=== PATIENT | male | born 1945 | race Caucasian/White ===

== ENCOUNTER 2021-02-24 06:42 | Inpatient (IN) ==
--- NOTE | 2021-01-26 09:50 | PAT Medication Instructions ---
Medication Instructions Date of Service January 26, 2021 Home Medications aspirin [Aspir-81] 81 mg PO HS atorvastatin 40 mg PO PM carvedilol 25 mg PO HS gabapentin 600 mg PO TID gemfibrozil 600 mg PO QPM ibuprofen [Advil] 200 - 400 mg PO Q6H PRN multivitamin 1 tab PO HS ramipril [Altace] 10 mg PO HS zolpidem 10 mg PO HS ASK your surgeon for instructions ibuprofen [Advil] 200 - 400 mg PO Q6H PRN ASK your prescriber and surgeon aspirin [Aspir-81] 81 mg PO HS STOP taking 48 hours before surgery gemfibrozil 600 mg PO QPM Take morning of surgery With a small sip of water, OTHERWISE NOTHING TO EAT OR DRINK AFTER MIDNIGHT: gabapentin 600 mg PO TID Take evening before surgery atorvastatin 40 mg PO PM carvedilol 25 mg PO HS gabapentin 600 mg PO TID ramipril [Altace] 10 mg PO HS zolpidem 10 mg PO HS Other Notes If you have any questions please call us at [phone] or [phone] or [phone] or [phone]
--- NOTE | 2021-01-29 10:51 | Anesthesiology Consultation ---
Date of Service January 29, 2021 Assessment & Plan (1) Encounter for pre-operative examination: - Awaiting most recent vascular office visit note. - Anemia: preop labs with hgb 11.6. No comparison labs available. Awaiting PCP response. - COVID screening: Per assessment on 01/29: Travel screen negative, no known COVID-19 positive contacts or current COVID-19 related symptoms. Patient vaccinated. Surgeon arranging preop COVID testing. Awaiting results. - Cardiology office visit (01/21/21): "An echocardiogram was ordered prior to this visit to reevaluate EF and wall motion.. Echocardiogram reviewed. This indicates normal left ventricular size and function with an ejection fraction of 55-60%. This is an improvement from his previous study done 11/16/2017 as ejection fraction was noted to be 40% with global hypokinesis. Significant valvular abnormalities are not present. Pulmonary hypertension is not present.. Patient denies complaints of angina. He has no evidence of volume overload or heart failure on exam. Blood pressure is controlled.. From a cardiology standpoint he is currently stable to proceed with planned surgery. Additional cardiac testing has [sic] not required prior to surgery. Recommend continued cardiac medications throughout the perioperative period especially beta-mary and statin. ASA should be d/c'd if known bleeding risks are similar or more severe than CV risk of ASA withdrawal. Therefore, whether or not to d/c ASA will be left to the surgeon's discretion.. Given the patient's clinical stability, I have not ordered new non-invasive test at this time." Chart Review Chart Review: Patient seen in Pre Admission Testing Teaching & Discussion Pre-Anesthesia Teaching/Discussion Notes: Instructed NPO after midnight before surgery,except medications with 15 cc of water. Medication instructions provided according to the PAT guidelines. History Surgery Operation Date: 02/24/21 07:15 Proposed Procedures p Left Shoulder Reverse Total Arthroplasty - Preston Cantor MD Height/Weight Height: 5 ft 11 in Weight: 76.8 kg Allergies Allergy/AdvReac Type Severity Reaction Status Date / Time No Known Allergies Allergy Verified 01/26/21 08:36 Medications Home Medications Medication Instructions Recorded Confirmed Last Taken aspirin 81 mg tablet,delayed 81 mg PO HS 01/26/21 01/26/21 Unknown release atorvastatin 40 mg tablet 40 mg PO PM 01/26/21 01/26/21 Unknown carvedilol 25 mg tablet 25 mg PO HS 01/26/21 01/26/21 Unknown gabapentin 300 mg capsule 600 mg PO TID 01/26/21 01/26/21 Unknown gemfibrozil 600 mg tablet 600 mg PO QPM 01/26/21 01/26/21 Unknown ibuprofen 200 mg tablet (Advil) 200 - 400 mg PO Q6H PRN 01/26/21 01/26/21 Unknown multivitamin 1 tab PO HS 01/26/21 01/26/21 Unknown ramipril 10 mg capsule (Altace) 10 mg PO HS 01/26/21 01/26/21 Unknown zolpidem 10 mg tablet 10 mg PO HS 01/26/21 01/26/21 Unknown Past Medical History Medical History AAA (abdominal aortic aneurysm) Infrarenal AAA, Follows with Dr. Mendez Arthritis CAD (coronary artery disease) CABG x4 (1998)- Follows with Dr. Leon/REBEKAH History of subdural hematoma 2011 Hyperlipidemia Hypertension Neuropathy B/L legs/feet PAD (peripheral artery disease) S/P femoropopliteal bypasses (patent) Renal artery stenosis Follows with Dr. Mendez Exercise / Class Metabolic Activity II 4-5 Yardwork/Stairs/Walk up hill (one FS (no CP, no SOB)) Past Family History Family History Other No known health problems Past Surgical History Surgical History History of colonoscopy History of coronary artery bypass graft CABG x4 (1998) History of hand surgery Right joint surgery History of tonsillectomy History of vascular surgery R/L legs- femoropopliteal bypasses (1998) Past Anesthesia History No Hx of Anesthesia Complications and No Family Hx of Anesthesia Complications History of PONV No Hx of PONV and No Hx of Motion Sickness Social History Smoking Status: Former smoker Do You Dip or Chew Tobacco: No Smoking End Date: Quit 14 years ago Hx Alcohol Use: Yes Alcohol type: beer alcohol intake frequency: a few times a week Hx Substance Use: No Review of Systems Patient denies chest pain, shortness of breath, dyspnea on exertion, fever, chills, cough, wheezing, palpitations. Physical Exam Vital Signs VITALS BP 126/66 P 79 TEMP 98.2 SP02 96%RA RESP 16 PHYSICAL Full cervical extension range of motion. Full TMJ range of motion. TMD 3 finger breaths Mallampati Score 1 Dentition: upper/lower full plates Lungs: clear throughout to auscultation Cardiac: regular rate and rhythm, no murmurs noted Spine: + scoliosis Carotid arteries: negative bruit Extremities: no edema Lab Results Anesthesia Preop Results Results Anesthesia Widget: WBC 5.15 K/uL (4.8-10.8) 01/29/21 Hgb 11.6 g/dL (14.0-18.0) L 01/29/21 Hct 35.3 % (42-52) L 01/29/21 Plt 185 K/uL (130-400) 01/29/21 Na 138 mmol/L (136-145) 01/29/21 K 4.4 mmol/L (3.5-5.1) 01/29/21 Cl 110 mmol/L (98-107) H 01/29/21 CO2 26 mmol/L (21-32) 01/29/21 BUN 16 mg/dl (7-18) 01/29/21 Creat 1.00 mg/dl (0.6-1.4) 01/29/21 Glucose Level 108 mg/dl (70-99) H 01/29/21 PT 11.2 Seconds (9.0-12.0) 01/29/21 PTT 24.8 Seconds (21.0-31.0) 01/29/21 INR 1.1 (0.9-1.1) 01/29/21 HA1c 5.5 % (4.5-5.6) 01/29/21 Urine Color Yellow 01/29/21 Urine Appearance Clear (Clear) 01/29/21 Urine pH 6.5 (4.5-7.5) 01/29/21 Urine Specific [place] 1.016 (1.000-1.030) 01/29/21 Urine Protein Negative (Negative) 01/29/21 Urine Glucose (UA) Negative (Negative) 01/29/21 Urine Ketones Negative (Negative) 01/29/21 Urine Blood Negative (Negative) 01/29/21 Urine Nitrite Negative (Negative) 01/29/21 Urine Bilirubin Negative (Negative) 01/29/21 Urine Urobilinogen Negative (Negative) 01/29/21 Urine Leukocyte Esterase Negative (Negative) 01/29/21 Blood Type O Positive 01/29/21 Antibody Screen NEGATIVE 01/29/21 Testing Electrocardiogram Date: 01/21/21 Sinus rhythm at 6 7 bpm. Low voltage. Nonspecific T wave changes. Chest X-Ray Date: 01/29/21 FINDINGS: There are postsurgical changes of a midline sternotomy. There is no failure. There is no focal pulmonary consolidation. There are no pleural effusions. There is a chronic midthoracic compression deformity. There is a thoracolumbar scoliosis.[ IMPRESSION: No active disease in the chest. Echocardiogram Date: 01/12/21 EF 55 to 60%. Although no diagnostic regional wall motion abnormalities identified, this possibility cannot be completely excluded on the basis of the study. RVSP 25 mmHg. Mild TR. AV sclerosis. LAD.
--- NOTE | 2021-02-23 13:56 | History & Physical Report ---
Date of Service February 23, 2021 Assessment & Plan (1) Rotator cuff arthropathy of left shoulder: Plan: Treatment options discussed with patient. He would like to proceed with surgical intervention. Risks, benefits and alternatives to surgery including but not limited to infection, DVT, pain, stiffness, need for revision surgery, damage to blood vessels, damage to nerves, PE, , were discussed with the patient and they wish to proceed. Plan on left reverse total shoulder arthroplasty. Surgery scheduled for 02/24/21 at [facility]. Will plan on discharge home post operatively. All questions answered. F/u post op. History of Present Illness Chief Complaint: Left shoulder pain Primary Care Provider: NO PCP 76 year old male with PMHx significant for AAA, CAD s/p CABG, HTN, high cholesterol, PAD who presents with ongoing left shoulder pain. He has pain interfering with daily activities. He has failed conservative measures. He would like to proceed with surgical intervention. Patient denies headaches, sweats, fevers, chills, double vision, blurred vision, cough, sore throat, dysphagia, chest pain, sob, wheezing, n/v/d/c, numbness, tingling, fatigue, urinary symptoms, mood disorders. ROS positive for left shoulder pain and stiffness. Allergies Allergy/AdvReac Type Severity Reaction Status Date / Time No Known Allergies Allergy Verified 01/26/21 08:36 Home Medications Medication Instructions Recorded Confirmed Type aspirin 81 mg tablet,delayed 81 mg PO HS 01/26/21 01/26/21 History release atorvastatin 40 mg tablet 40 mg PO PM 01/26/21 01/26/21 History carvedilol 25 mg tablet 25 mg PO HS 01/26/21 01/26/21 History gabapentin 300 mg capsule 600 mg PO TID 01/26/21 01/26/21 History gemfibrozil 600 mg tablet 600 mg PO QPM 01/26/21 01/26/21 History ibuprofen 200 mg tablet (Advil) 200 - 400 mg PO Q6H PRN 01/26/21 01/26/21 History multivitamin 1 tab PO HS 01/26/21 01/26/21 History ramipril 10 mg capsule (Altace) 10 mg PO HS 01/26/21 01/26/21 History zolpidem 10 mg tablet 10 mg PO HS 01/26/21 01/26/21 History Past Med/Surg History Medical History AAA (abdominal aortic aneurysm) Infrarenal AAA, Follows with Dr. Mendez Arthritis CAD (coronary artery disease) CABG x4 (1998)- Follows with Dr. Leon/REBEKAH History of subdural hematoma 2011 Hyperlipidemia Hypertension Neuropathy B/L legs/feet PAD (peripheral artery disease) S/P femoropopliteal bypasses (patent) Renal artery stenosis Follows with Dr. Mendez Surgical History History of colonoscopy History of coronary artery bypass graft CABG x4 (1998) History of hand surgery Right joint surgery History of tonsillectomy History of vascular surgery R/L legs- femoropopliteal bypasses (1998) Family History Other No known health problems Social History (Updated 01/26/21 @ 09:03 by Nelly Guidry RN) Smoking Status: Former smoker Second Hand Exposure: Yes (PARENTS SMOKED); Hx Alcohol Use: Yes Alcohol type: beer Hx Substance Use: No Preferred Language: Swiss Communication Ability: Effective Central Office Maintainer Required: No Beliefs That Will Affect Care: None Current Living Situation: Alone current occupational status: retired Feels Safe at Home: Yes Assistive Devices: Denture - Upper, Denture - Lower, Glasses and Hearing Aid - Bilateral Review of Systems All systems reviewed & are unremarkable except as noted in HPI & below Physical Exam Constitutional: well developed and well nourished; no acute distress Eyes: PERRL, conjunctivae normal, anicteric sclerae ENMT: external ear and nose normal, oropharynx normal Neck: trachea midline, no thyromegaly Respiratory: normal respiratory effort, lungs clear to auscultation Cardiovascular: RRR, no murmur, no edema Musculoskeletal: Shoulder Exam Inspection Right Left Atrophy *PRESENT Deformities Absent Absent Posture Symmetrical Symmetrical Rhythm Normal *ABNORMAL Skin/scars Normal Normal Palpation Right Left Crepitus Absent *PRESENT Tenderness Non-tender Diffuse, anterior - posterior joint line Stability/Laxity Right Left Anterior apprehension Negative Anterior translation *POSITIVE, To the rim (2) Posterior translation Negative Nunn's Negative *POSITIVE SLAP test Negative Speed's test Negative Yergason's Negative Belly press Negative *POSITIVE Mac Negative *POSITIVE Lift off test *POSITIVE Neer's Negative *POSITIVE Strength Tests Right Left External rotation Normal Normal Shoulder shrug Normal Normal Supraspinatus Normal Normal Comments: The patient has pain with resisted strength testing. Left shoulder anterior subluxation, cogwheel [id number] crepitation with resistance. Range of Motion Right Left Active factors Normal Active description Active pain free range of motion *ACTIVE PAINFUL RANGE OF MOTION Passive factors Normal Passive description Passive pain free range of motion *PASSIVE PAINFUL RNAGE OF MOTION Ext rot 90 abduction active 90 degrees 60 degrees Ext rot 90 abduction passive 90 degrees 90 degrees Int rot 90 abduction active 90 degrees 70 degrees Int rot 90 abduction passive 80 degrees 70 degrees Ext rot 90 flexion active 90 degrees 60 degrees Ext rot 90 flexion passive 90 degrees 60 degrees Internal rotation active T4 SI Internal rotation passive T4 L3 Flexion active 180 degrees 70 degrees Flexion passive 180 degrees 150 degrees Extension active 60 degrees 40 degrees Extension passive 60 degrees 40 degrees Abduction active 180 degrees 40 degrees Abduction passive 180 degrees 70 degrees Adduction active 50 degrees 40 degrees Adduction passive 50 degrees 40 degrees Upper Extremity Strength Region Right Left Shoulder Right shoulder strength is decreased Left shoulder strength is decreased Strength - Measurement Right Left Shoulder external rotation 4+/5 Shoulder internal rotation 2+/5 3-/5 Shoulder abduction 2+/5 3-/5 Shoulder flexion 2+/5 3-/5 Skin: no rashes, warm and dry Neurologic: patellar DTR's 2+ bilat, sensation intact Psychiatric: A+Ox3, euthymic affect Results & Data ([facility]) Diagnostic Findings X-rays left shoulder demonstrate that he has significant glenohumeral joint space narrowing with subchondral sclerosis and close to, if not being bone on bone in the glenohumeral joint radiographically. There is a type III acromion with inferior acromial spur, AC joint osteoarthritis with an inferior AC joint spur, and some anterior translation of the humerus on axillary view. There is also some proximal migration of the humerus. Four-view left shoulder. MRI demonstrates massive retracted tear of rotator cuff with fatty atrophy
[~2021-02-24 06:42] MED LIST: ACETAMINOPHEN 500 MG TAB PO SCH; BUPIVACAINE 0.5 % 5 MG/1 ML PF 10ML VIAL ONE; CeleBREX 200 MG CAP PO SCH; FAMOTIDINE 20 MG TAB PO SCH; GABAPENTIN 300 MG CAP PO SCH; LR 15ML/HR IV SCH; METOCLOPRAMIDE HCL 10 MG TABLET PO SCH; TRANEXAMIC ACID 1,000 MG **IV Intra-op IV SCH; TRANEXAMIC ACID 1,000 MG **IV Pre-op IV SCH; ceFAZolin 2000MG 2,000 MG/15 ML SYR IV SCH; dexAMETHasone 4 MG TAB PO SCH
[2021-02-24] MEDS ORDERED: PROPOFOL IV EMULSION 10 MG/ML 20 ML VIAL IV ONE (07:00)
[2021-02-24] MEDS ORDERED: ROCURONIUM BROMIDE 10 MG/ML 5 ML VIAL IV ONE (07:00)
[2021-02-24] MEDS ORDERED: LIDOCAINE 2% 2 ML VIAL/AMP(20MG/ML) INFIL ONE (07:00)
--- NOTE | 2021-02-24 07:24 | History & Physical Bridge Note ---
Date of Service February 24, 2021 History & Physical Bridge Note I have examined the patient, reviewed the History & Physical and in the interval since the performance of the History & Physical I have noted the following changes of clinical significance: no changes noted
[2021-02-24] MEDS ORDERED: fentaNYL citrate 100 MCG/2 ML VIAL IV PRN (07:57)
[2021-02-24] MEDS ORDERED: HYDROmorphone INJ 2 MG/ML SYR/VIAL IV PRN (07:57)
[2021-02-24] MEDS ORDERED: ONDANSETRON INJ 2 MG/ML 2 ML VIAL IV PRN ×2 (07:57→13:17)
[2021-02-24] MEDS ORDERED: ATROPINE SULFATE 0.1 MG/ML 10ML SYR IV PRN (07:57)
[2021-02-24] MEDS ORDERED: ePHEDrine sulfate 50 MG/ML AMP IV PRN (07:57)
[2021-02-24] MEDS ORDERED: fentaNYL citrate 100 MCG/2 ML VIAL ONE (08:15)
[2021-02-24] MEDS ORDERED: ONDANSETRON INJ 2 MG/ML 2 ML VIAL ONE (08:15)
[2021-02-24] MEDS ORDERED: MIDAZOLAM HCL 1 MG/ML 2ML VIAL ONE (08:15)
[2021-02-24] MEDS ORDERED: DEXAMETHASONE SOD INJ 4 MG/ML VIAL ONE (08:15)
[2021-02-24] MEDS ORDERED: ePHEDrine sulfate 50 MG/ML SYR ONE (09:55)
[2021-02-24] MEDS ORDERED: NEOSTIGMINE METHYLSULFATE 1 MG/ML 10ML VIAL ONE (11:32)
[2021-02-24] MEDS ORDERED: GLYCOPYRROLATE 0.2 MG/ML VIAL ONE (11:32)
--- NOTE | 2021-02-24 12:14 | Operative Report ---
Post Operative Report Pre & Post Diagnosis Operation Date: 02/24/21 09:05 Pre-Op Diagnosis: Left Shoulder Rotator Cuff Arthropathy, chronic rotator cuff tear, dislocated biceps tendon, history of Putti- Bryan procedure Post-Op Diagnosis: Left Shoulder Rotator Cuff Arthropathy, chronic rotator cuff tear, biceps tendinopathy, dislocated biceps tendon, history of Putti-Bryan procedure I identified the patient and participated in the time-out.: Yes Procedure Operation Date: 02/24/21 09:05 Actual Procedures p Left Reverse Total Shoulder Arthroplasty, Biceps Tenodesis(Left) - Preston Cantor MD Surgeon Preston Cantor MD Belt Dresser Ronny BRUCE Estimated Blood Loss 125 Findings Consistent with Post-Op Diagnosis Specimens Humeral head cut Drains 2 Hemovac Anesthesia Type General Regional Complications none Disposition Disposition: Recovery Room Indications 68-year-old male with chronic pain weakness left shoulder history of Putti- Bryan procedure many years ago. Radiographs demonstrate [id number] glenohumeral joint and he has a type III acromion. MRI demonstrates chronic retracted rotator cuff tear including subscapularis tendon and supraspinatus tendon with dislocated biceps tendon Description of Procedure The patient was taken to the operating room and anesthetized under regional block and general anesthetic. The patient was positioned on the operating table in a 30 beachchair position with a towel roll under the medial border of the left scapula. The arm was draped free to be able to manipulate the shoulder as needed. The left upper extremity was prepped and draped in usual sterile fashion. Exam demonstrated a long scar in the deltopectoral groove mid to lower aspect and superiorly extended up over the acromion process. No deltoid atrophy with good passive range of motion in external rotation to 80 degrees and forward flexion to 150 degrees but abduction was limited to about 60 degrees . An anterior deltopectoral approach was performed. A longitudinal incision was made in the deltopectoral interval using the lower part of the scar from the previous surgery and then continuing toward the coracoid process away from the old scar with a standard deltopectoral approach incision.. The skin was incised sharply. Subcutaneous flaps were elevated off the fascia. The cephalic vein was dissected out and retracted lateral with the deltoid. The clavipectoral fascia was markedly scarred from old surgical procedure and the scarred bursa tissue was freed up from the lateral margin of the conjoined tendon and dissected up to the CA ligament which was released. The thickened scarred bursal tissue was resected off of the subscapularis tendon tissue. There was some thin scarred tendon tissue proximally the biceps tendon was dislocated underneath this and it was thicker intact lower subscapularis tendon tissue. The supraspinatus tendon was torn and retracted the infraspinatus tendon was intact but had a delaminating tear of which some which could be repaired. The upper centimeter of the pectoralis was released for inferior exposure. the biceps tendon was tenodesed to the pectoralis tendon with #2 FiberWire. The proximal biceps was resected. The subscapularis tendon was taken down off the lesser tuberosity using a subperiosteal dissection. A #1 Vicryl traction suture was placed into the free end of the subscapularis tendon thin scarred tissue and edge of the capsule. The circumflex vessels were identified and tied off with silk ties and divided laterally. The subscapularis tendon was then taken down off of the lesser tuberosity subperiosteally and subperiosteal dissection was performed along the neck of the humerus as the arm is gradually externally rotated exposing the humeral head. The humeral head findings demonstrated some relatively small inferior osteophytes with complete eburnated bone on humeral head.. retractors were readjusted and the inferior osteophytes were all resected using a rongeur. A Lantigua elevator was used to assist in releasing the capsule of the neck of the humerus. A Fukuda retractor was placed into the joint retracting the humeral head posterior. Glenoid findings demonstrated upper 80% of the glenoid was complete eburnated bone with central wear with small amount of residual cartilage inferiorly. The labrum and biceps tendon was resected. an anterior-inferior and posterior inferior capsular release were performed with electrocautery and a Lantigua elevator on bone. Attention was then taken to the humeral preparation. The cutting guide was placed into the humeral head. It was positioned at 20 of retroversion. Oscillating saw was used to resect the humeral head giving the cut above the level of the posterior rotator cuff insertion site. The humerus was then prepared for the stem. I used the ascend flex stem from [facility]. The sizing broaches were used followed by trial broaches up to a size 5B long which had the appropriate fit and fill. The appropriate sized cut protector was placed. The humerus was then retracted posterior to the glenoid. The glenoid was sized for a 29 baseplate 42 glenoid sphere. The guide for the baseplate was positioned in a 10 inferior tilt and the central drill hole was made. The reamer for the 29 baseplate was used. The central drill was widened for the peg. The aequalis 29 hydroxyapatite-coated baseplate was impacted into position. The base plate was transfixed with superior and inferior locking screws and anterior and posterior compression screws with stable fixation. The fan reamer was used for the 42 millimeter glenoid sphere. After irrigation the 42 standard glenoid sphere was impacted onto the baseplate and the screw was tightened. Attention was taken back to the humerus. The cut protector was removed and the plus or high offset humeral tray trial was assembled to the trial stem rotated appropriately to get bony coverage and then screwed in position. A trial reduction was performed. A +6, 42 trial insert demonstrated good stability and no shuck. The trials were removed. 3 drill holes are made into the harder bone in the bicipital groove area and 3 #5 FiberWire sutures were placed transosseously. The canal was irrigated with pulse lavage saline solution. The final component was assembled. The final component was 5B long ascend flex PTC stem assembled to the plus or high offset tray with a +6, 42 polyethylene reversed insert. This was then impacted into the humerus with a tight press-fit. It was reduced to the glenoid sphere. Stability was verified. Subscapularis was repaired with the #5 FiberWire sutures using Pranav-Anselmo suture technique. Lateral row soft tissue repair was performed with #2 FiberWire [id number] sutures. The pectoralis was repaired with #2 FiberWire [id number] sutures reinforcing the biceps tendon tenodesis. The arm was taken through a range of motion which demonstrated 150 degrees of flexion 90 degrees abduction external rotation to 50 degrees without tension on repair. The implant was stable through the range of motion tested. The wound was copiously irrigated. 2 Hemovac drains were placed. The deltopectoral interval was closed with [id number] #1 Vicryl sutures. The subcutaneous tissues were closed with 2-0 Vicryl sutures. The skin was closed with ronald. Sterile dressings were applied and a shoulder immobilizer. Ronny BRUCE my physician facilities maintenance assistant assisted in the procedure to the entire procedure including patient positioning arm positioning prepping and draping soft tissue retraction instrument management suture management and performed the subcutaneous and skin closure and will participate in the postoperative care of the patient. I attest to the content of the Intraoperative Record and any orders documented therein. Any exceptions are noted below.
--- NOTE | 2021-02-24 12:43 | Anesthesiology Progress Note ---
Date of Service February 24, 2021 Anesthesia Post Procedure Vital Signs Vital Signs: Temp Pulse Pulse Resp BP Pulse Ox 02/24/21 12:40 51 L 16 140/70 98 02/24/21 12:30 50 L 12 138/70 100 02/24/21 12:20 54 L 14 144/67 H 98 02/24/21 12:12 36.0 C L 68 16 155/63 H 99 02/24/21 07:12 36.6 C 69 18 161/77 H 97 Transfer of Care Handoff Completed per policy Notes Mental Status: alert / awake / arousable and participated in evaluation Patient Amnestic to Procedure: Yes Nausea / Vomiting: adequately controlled Pain: adequately controlled Airway Patency, RR, SpO2: stable & adequate BP & HR: stable & adequate Hydration State: stable & adequate Anesthetic Complications: no major complications apparent
[2021-02-24] MEDS ORDERED: oxyCODONE HCL IR 5 MG TAB (IMMEDIATE RELEASE) PO PRN (13:17)
[2021-02-24] MEDS ORDERED: HYDROmorphone INJ 0.5 MG/0.5 ML SYR IV PRN (13:17)
[2021-02-24] MEDS ORDERED: MAGNESIUM HYDROXIDE SUSP 30 ML UDC PO PRN (13:17)
[2021-02-24] MEDS ORDERED: NALOXONE HCL 0.4 MG/1 ML VIAL/CARP IV PRN (13:17)
[2021-02-24] MEDS ORDERED: bisacodyL 10 MG SUPP PR PRN (13:17)
--- NOTE | 2021-02-24 13:21 | XRay Report ---
XR shoulder LT min 2V routine CLINICAL HISTORY: Post shoulder surgery COMPARISON STUDY: None. FINDINGS: 2 views of the left shoulder demonstrate a peripheral versus left total shoulder arthroplas ty. The hardware appears intact. Alignment is anatomic. No fracture or dislocation. Skin ronald and surgical drains are in place. IMPRESSION: Status post reverse left total shoulder arthroplasty. No evidence for hardware, location . ACT 112: Negative or not required by law. Electronically signed by: Dmitry Benjamin M.D. 02/24/2021 1:20 PM
[2021-02-24] MEDS: SODIUM CHLORIDE 0.9% 1000ML 1,000 ML IV SCH ×2 (15:49→22:23)
[2021-02-24] MEDS: ACETAMINOPHEN 500 MG TAB PO SCH ×2 (15:50→21:07)
[2021-02-24] MEDS: GABAPENTIN 300 MG CAP PO SCH ×2 (15:50→21:08)
[2021-02-24] MEDS: ceFAZolin 1000MG 1,000 MG/7.5 ML SYR IV SCH ×2 (17:27→23:37)
--- NOTE | 2021-02-24 19:52 | Hospitalist Consultation ---
Date of Consultation February 24, 2021 Assessment & Plan (1) Rotator cuff arthropathy of left shoulder: POD #0 - doing well up ambulating, using ICS, tolerating diet - Pain control reviewed- per primary team- rescue Narcan available - Drain per primary team - IVF- maintenance per primary team - ABX per primary team - PT/OT per primary team - DVT: SCD's on - chemoprophylaxis per primary team (2) Hypertension: Well controlled - Continue with Carvedilol 25 mg PO - SURYA inhibitor hold- follow renal indices in the morning- can likely restart if no concerns - Patient on Altace as outpatient- ordered LiveMinutestec for formulary equivalence dose verfied with medical clearance from 02/15/21- Altace 2.5 mg PO daily - Takes these at night, can give PRN dosing via IV or PO in morning if hypertensive, currently SBP 90-110 so should be ok to continue to hold. (3) Hyperlipidemia: Continue Atorvastatin 40mg and Lopid 600mg QPm (4) CAD (coronary artery disease): Continue Carvedilol, ASA as you have done already, and statin - Denies any chest pain or palpitations currently (5) PAD (peripheral artery disease): As above, continue asa (6) Renal artery stenosis: Follow BMP and blood pressures while in house (7) NICM (nonischemic cardiomyopathy): As above Supervising Physician Co-Signing Physician Notes Attending addendum: I have supervised the CASTRO's activities, and agree with the H&P unless as otherwise noted. Assessment and Plan: Left shoulder rotator cuff arthropathy, status post surgical repair- Antibiotics, IV fluids, PT/OT, drains, DVT prophylaxis per primary team Hypertension/CAD/PAD- Good control continue carvedilol with hold parameters Adjustment with SURYA inhibitor as noted Continue aspirin Hyperlipidemia- continue atorvastatin and Lopid Remaining orders and notations as noted History of Present Illness Reason for Consultation: Post operative medical management Requesting Physician: Dr. Cochran Attending Physician: Preston Cantor MD History of Present Illness 76 YOM with past medical history of: CAD, CABG 1993, HTN, HLD, PVD, ICM, former smoker, subdural hematoma (2011), AAA, Renal artery stenosis, Fem-pop and pop- tib bypass, Preoperative ECHO EF 55-60%. Patient is POD #0 from a left total shoulder arthroplasty. Patient received General Anesthesia. Patient EBL was 125 ml and has Hemovac drain in place. The patient was evaluated in his benitez room. The patient is briskly awake and is already up to and from the bathroom. He feels his pain is controlled as well as already tolerated a meal and fluids without nausea or vomiting, he is on room air. Medical clearance and Cardiology clearance notes reviewed. Operative reports reviewed. Additions: None- his Aspirin has been continued through the postoperative phase- Agree Held: Vasotec for morning of 12August- hold 24 can restart in morning if renal indices are appropriate- Medical clearance from PCP has dose listed at 2.5 mg Al tace- Equivalent would be 10 Enalapril dose adjusted and rescheduled. Allergies Allergy/AdvReac Type Severity Reaction Status Date / Time No Known Allergies Allergy Verified 02/24/21 07:07 Home Medications Medication Instructions Recorded Confirmed Type aspirin 81 mg tablet,delayed 81 mg PO HS 01/26/21 02/24/21 History release atorvastatin 40 mg tablet 40 mg PO PM 01/26/21 02/24/21 History gabapentin 300 mg capsule 600 mg PO TID 01/26/21 02/24/21 History gemfibrozil 600 mg tablet (Lopid) 600 mg PO QPM 01/26/21 02/24/21 History multivitamin 1 tab PO HS 01/26/21 02/24/21 History ramipril 10 mg capsule (Altace) 2.5 mg PO HS 01/26/21 02/24/21 History zolpidem 10 mg tablet 10 mg PO HS 01/26/21 02/24/21 History acetaminophen 500 mg tablet 1,000 mg PO Q8 14 Days #84 tab 02/25/21 Rx (Tylenol Extra Strength) carvedilol 25 mg tablet 25 mg PO BID #60 tab 02/25/21 Rx oxycodone 5 mg tablet 5 mg PO Q4H PRN #30 tab MDD 6 02/25/21 Rx polyethylene glycol 3350 17 gram 17 g PO DAILY PRN #5 ea 02/25/21 Rx oral powder packet (Miralax) Patient History Medical History (Updated 02/25/21 @ 12:30 by Rosario Kendrick MD) AAA (abdominal aortic aneurysm) Infrarenal AAA, Follows with Dr. Mendez Arthritis CAD (coronary artery disease) CABG x4 (1998)- Follows with Dr. Leon/REBEKAH History of subdural hematoma 2012 Hyperlipidemia Hypertension Neuropathy B/L legs/feet PAD (peripheral artery disease) S/P femoropopliteal bypasses (patent) Renal artery stenosis Follows with Dr. Mendez Surgical History History of colonoscopy History of coronary artery bypass graft CABG x4 (1998) History of hand surgery Right joint surgery History of tonsillectomy History of vascular surgery R/L legs- femoropopliteal bypasses (1998) Family History Other No known health problems Social History Smoking Status: Former smoker Second Hand Exposure: Yes (PARENTS SMOKED); Hx Alcohol Use: Yes Alcohol type: beer Hx Substance Use: No Preferred Language: Puerto Rican Communication Ability: Effective Mine Geologist Required: No Beliefs That Will Affect Care: None Current Living Situation: Alone current occupational status: retired Feels Safe at Home: Yes Assistive Devices: Glasses Review of Systems Review of Systems: REVIEW OF SYSTEMS: Constitutional: No fever, sweats or chills Eyes: No diplopia, no worsening or blurred vision ENT: normal hearing, no trouble swallowing Respiratory: No cough, sputum, dyspnea at rest or on exertion Cardiovascular: No chest pain, tightness or palpitations Abdomen: No pain, nausea, vomiting, diarrhea or constipation Musculoskeletal: No joint pain, calf pain, swelling Neurologic: No weakness, numbness/tingling, or balance problems Psychiatric: No anxiety or depression Skin: No rash or itch Physical Exam Physical Exam: PHYSICAL EXAM: General: briskly awake, alert, no apparent distress Head: Normocephalic, atraumatic ENT: PERRLA, EOMI, no pharyngeal exudate, mucous membranes moist Neuro: AAO x 3, speech clear and appropriate, strength intact bilaterally 5/5, sensation intact and equal all extremities and dermatomes Chest: equal rise and fall of the chest, no accessory muscle use, no heaves or thrills, Clear to auscultation, on room air, Cardiac: Regular rate and rhythm, telemetry reviewed, skin warm dry, cap refill <3 seconds, peripheral pulses +2 no JVD, no murmur, no edema GI: NABS x 4 quadrants, soft, nontender to palpation, no rebound, guarding or tenderness : Spontaneously voiding, no pain, no CVA tenderness, MSKL Normal inspection, no peripheral khushbu, left shoulder in sling with dressing intact. Hemovac drain ini place with minimal serosang drainage, sensation normal, good movement of fingers and pulses are 2+ and warm Psych: Normal mood and affect Skin: no rash or erythema Results & Data Results & Data ([facility]) Vital Signs (Past 12 Hours) Vital Signs Temp Pulse Pulse Resp BP Pulse Ox 02/24/21 17:51 36.5 C 81 15 91/58 L 95 02/24/21 16:54 36.4 C L 79 16 113/59 L 98 02/24/21 15:46 36.3 C L 78 16 124/69 98 02/24/21 15:16 36.3 C L 78 16 122/66 98 02/24/21 14:39 36.3 C L 81 18 134/67 98 02/24/21 14:05 36.6 C 64 14 165/82 H 95 02/24/21 13:50 67 24 131/92 98 02/24/21 13:35 88 19 148/75 H 97 02/24/21 13:20 49 L 13 142/76 H 100 02/24/21 13:05 50 L 13 130/70 100 02/24/21 12:50 36.0 C L 53 L 14 130/73 99 02/24/21 12:40 51 L 16 140/70 98 02/24/21 12:30 50 L 12 138/70 100 02/24/21 12:20 54 L 14 144/67 H 98 02/24/21 12:12 36.0 C L 68 16 155/63 H 99 Laboratory Results Reviewed from 01/29/21- BMP in the morning CBC reviewed 01/29/21- CBC in morning No coagulopathy noted from 01/29/21 Diagnostic Findings Shoulder X-Ray 02/24/21 12:17 XR shoulder LT min 2V routine CLINICAL HISTORY: Post shoulder surgery COMPARISON STUDY: None. FINDINGS: 2 views of the left shoulder demonstrate a peripheral versus left total shoulder arthroplasty. The hardware appears intact. Alignment is anatomic. No fracture or dislocation. Skin ronald and surgical drains are in place. IMPRESSION: Status post reverse left total shoulder arthroplasty. No evidence for hardware, location. ACT 112: Negative or not required by law. Electronically signed by: Dmitry Benjamin M.D. 02/24/2021 1:20 PM Medications Administered Home Medications aspirin 81 mg tablet,delayed release 81 mg PO HS 01/26/21 [History Confirmed 02/24/21] atorvastatin 40 mg tablet 40 mg PO PM 01/26/21 [History Confirmed 02/24/21] carvedilol 25 mg tablet 25 mg PO HS 01/26/21 [History Confirmed 02/24/21] gabapentin 300 mg capsule 600 mg PO TID 01/26/21 [History Confirmed 02/24/21] gemfibrozil 600 mg tablet (Lopid) 600 mg PO QPM 01/26/21 [History Confirmed 02/24/21] ibuprofen 200 mg tablet (Advil) 200 - 400 mg PO Q6H PRN 01/26/21 [History Confirmed 02/24/21] multivitamin 1 tab PO HS 01/26/21 [History Confirmed 02/24/21] ramipril 10 mg capsule (Altace) 10 mg PO HS 01/26/21 [History Confirmed 02/24/21] zolpidem 10 mg tablet 10 mg PO HS 01/26/21 [History Confirmed 02/24/21] Active Medications Acetaminophen (Acetaminophen 500 Mg Tab) 1,000 mg PO Q8 MELISSA Stop: 03/26/21 14:44 Last Admin: 02/24/21 15:50 Dose: 1,000 mg Documented by: Aspirin (Aspirin 81 Mg Ectab) 81 mg PO HS MELISSA Stop: 03/26/21 20:59 Atorvastatin Calcium (Atorvastatin 40 Mg Tab) 40 mg PO PM MELISSA Stop: 03/26/21 20:59 Bisacodyl (Bisacodyl 10 Mg Supp) 10 mg MO DAILY PRN PRN Reason: Constipation Stop: 03/26/21 13:16 Carvedilol (Carvedilol 25 Mg Tab) 25 mg PO HS MELISSA Stop: 03/26/21 20:59 Docusate Sodium (Docusate Sodium 100 Mg Cap) 100 mg PO BID MELISSA Stop: 03/26/21 20:59 Enalapril Maleate (Enalapril Maleate 10 Mg Tab) 40 mg PO HS [facility] Stop: 03/26/21 20:59 Gabapentin (Gabapentin 300 Mg Cap) 600 mg PO TID [facility] Stop: 03/26/21 14:59 Last Admin: 02/24/21 15:50 Dose: 600 mg Documented by: Gemfibrozil (Gemfibrozil 600 Mg Tab) 600 mg PO QPM [facility] Stop: 03/26/21 20:59 Hydromorphone HCl (Hydromorphone Inj 0.5 Mg/0.5 Ml Syr) 0.25 mg IV Q4H PRN PRN Reason: Pain or Pre PT Stop: 03/10/21 13:16 Sodium Chloride (Nss 1000ml) 1,000 mls @ 100 mls/hr IV .Q10H [facility] Stop: 02/25/21 14:44 Last Admin: 02/24/21 15:49 Dose: 100 mls/hr Documented by: Cefazolin Sodium (Ancef 1000mg) 1,000 mg in 7.5 mls @ 2.5 mls/min IV Q8H [facility]; Protocol Stop: 02/25/21 00:02 Last Admin: 02/24/21 17:27 Dose: 2.5 mls/min Documented by: Magnesium Hydroxide (Magnesium Hydroxide Susp 30 Ml Udc) 30 ml PO Q6H PRN PRN Reason: Constipation Stop: 03/26/21 13:16 Multivitamins (Multivitamin Tab) 1 tab PO [facility] Stop: 03/26/21 20:59 Naloxone HCl (Naloxone Hcl 0.4 Mg/1 Ml Vial/Carp) 0.1 mg IV Q5M PRN PRN Reason: Oversedation/Resp Depression Stop: 03/26/21 13:16 Ondansetron HCl (Ondansetron Inj 2 Mg/Ml 2 Ml Vial) 4 mg IV Q6H PRN PRN Reason: Nausea And Vomiting Stop: 03/26/21 13:16 Oxycodone HCl (Oxycodone Hcl Ir 5 Mg Tab (Immediate Release)) 5 - 10 mg PO Q4H PRN PRN Reason: Pain or Pre PT Stop: 03/10/21 13:16 Sennosides (Senna 8.6 Mg Tab) 17.2 mg PO [facility] Stop: 03/26/21 20:59 Zolpidem Tartrate (Zolpidem Tartrate 10 Mg Tab) 10 mg PO HS MELISSA Stop: 03/26/21 20:59 ECG Additional Comments: Reviewed pre-operative PG Care Time/CCT Total # of Minutes Spent Total Time Spent with Patient: Total time spent is greater than 50% in coordination of care (as documented) at patient's floor/unit and/or counseling patient: Coding Level of Care Code 32326 Inpt Consult Level 4 Diagnoses Rotator cuff arthropathy of left shoulder M12.812 Hypertension I10 Hyperlipidemia E78.5 CAD (coronary artery disease) I25.10 PAD (peripheral artery disease) I73.9 Renal artery stenosis I70.1 NICM (nonischemic cardiomyopathy) I42.8
[2021-02-24] MEDS ORDERED: ENALAPRIL MALEATE 10 MG TAB PO SCH (21:00)
[2021-02-24] MEDS ORDERED: SENNA 8.6 MG TAB PO SCH (21:00)
[2021-02-24] MEDS ORDERED: carvediloL 25 MG TAB PO SCH (21:00)
[2021-02-24] MEDS ORDERED: MULTIVITAMIN TAB PO SCH (21:00)
[2021-02-24] MEDS ORDERED: ZOLPIDEM TARTRATE 10 MG TAB PO SCH (21:00)
[2021-02-24] MEDS ORDERED: ATORVASTATIN 40 MG TAB PO SCH (21:00)
[2021-02-24] MEDS ORDERED: ASPIRIN 81 MG ECTAB PO SCH (21:00)
[2021-02-24] MEDS ORDERED: gemfibroziL 600 MG TAB PO SCH (21:00)
[2021-02-24] MEDS: DOCUSATE SODIUM 100 MG CAP PO SCH (21:07)
[2021-02-24] MEDS ORDERED: SODIUM CHLORIDE 0.9% 1000ML 500 ML IV ONE ×2 (21:30→22:27)
[2021-02-24 22:02] LABS: Basophils # (auto) 0.01 K/uL (0-0.2); Basophils % (auto) 0.1 %; Hematocrit (blood only) 31.7 % (42-52); Hemoglobin 10.6 g/dL (14.0-18.0); Lymphocytes # (auto) 0.54 K/uL (1.2-3.4); Lymphocytes % (auto) 6.3 %; Mean Corpuscular Hemoglobin 31.9 pg (25-34); Mean Corpuscular Hgb Conc 33.4 g/dL (32-36); Mean Corpuscular Volume 95.5 fL (80-100); Mean Platelet Volume 10.7 fL (7.4-10.4); Monocytes % (auto) 9.4 %; Neutrophils # (auto) 7.16 K/uL (1.4-6.5); Neutrophils % (auto) 84.2 %; Platelet Count 153 K/uL (130-400); RDW Coefficient of Variation 12.7 % (11.5-14.5); RDW Standard Deviation 44.4 fL (36.4-46.3); Red Blood Count 3.32 M/uL (4.7-6.1); White Blood Count 8.51 K/uL (4.8-10.8)
[2021-02-24 22:18] LABS: Calcium 8.4 mg/dl (8.5-10.1); Creatinine Clr Calc Pharmacy 49.2 ml/min; Est GFR (Non-African American) 51.8 ml/min; Magnesium 1.6 mg/dl (1.8-2.4); Potassium 4.1 mmol/L (3.5-5.1)
[2021-02-24] MEDS ORDERED: MAGNESIUM SULFATE / D5W 1 GM/100 ML BAG IV ONE (22:26)
[2021-02-25] MEDS ORDERED: SODIUM CHLORIDE 0.9% 1000ML 500 ML IV ONE (00:04)
[2021-02-25] MEDS: SODIUM CHLORIDE 0.9% 1000ML 1,000 ML IV SCH (03:26)
[2021-02-25] MEDS: ACETAMINOPHEN 500 MG TAB PO SCH ×3 (06:12→17:57)
[2021-02-25] MEDS: DOCUSATE SODIUM 100 MG CAP PO SCH (08:05)
[2021-02-25] MEDS: GABAPENTIN 300 MG CAP PO SCH ×2 (08:05→14:18)
--- NOTE | 2021-02-25 08:31 | Electrocardiogram Report ---
Test Reason : Blood Pressure : / mmHG Vent. Rate : 124 BPM Atrial Rate : 115 BPM P-R Int : 000 ms QRS Dur : 096 ms QT Int : 324 ms P-R-T Axes : 000 -38 -48 degrees QTc Int : 465 ms Supraventricular tachycardia Left axis deviation Incomplete right bundle branch block possible Inferior infarct , age undetermined Abnormal ECG No previous ECGs available Confirmed by Carlitos Alcantara ([id number]) on 02/25/2021 8:30:59 AM Referred By: Preston Cantor Confirmed By:Genaro Alcantara
[2021-02-25] MEDS ORDERED: carvediloL 25 MG TAB PO SCH (09:00)
[2021-02-25] MEDS ORDERED: ENALAPRIL MALEATE 10 MG TAB PO SCH ×2 (09:00→21:00)
[2021-02-25 09:04] LABS: Basophils # (auto) 0.01 K/uL (0-0.2); Basophils % (auto) 0.2 %; Eosinophils # (auto) 0.01 K/uL (0-0.5); Eosinophils % (auto) 0.2 %; Hematocrit (blood only) 29.1 % (42-52); Hemoglobin 9.7 g/dL (14.0-18.0); Immature Granulocytes # (auto) 0.01 K/uL (0.00-0.02); Immature Granulocytes % (auto) 0.2 %; Lymphocytes # (auto) 0.86 K/uL (1.2-3.4); Lymphocytes % (auto) 13.3 %; Mean Corpuscular Hemoglobin 31.9 pg (25-34); Mean Corpuscular Hgb Conc 33.3 g/dL (32-36); Mean Corpuscular Volume 95.7 fL (80-100); Monocytes # (auto) 0.68 K/uL (0.11-0.59); Monocytes % (auto) 10.5 %; Neutrophils # (auto) 4.88 K/uL (1.4-6.5); Neutrophils % (auto) 75.6 %; Platelet Count 154 K/uL (130-400); RDW Coefficient of Variation 12.8 % (11.5-14.5); RDW Standard Deviation 44.7 fL (36.4-46.3); Red Blood Count 3.04 M/uL (4.7-6.1); White Blood Count 6.45 K/uL (4.8-10.8)
--- NOTE | 2021-02-25 09:27 | Orthopedic Progress Note ---
Date of Service February 25, 2021 Assessment & Plan (1) Rotator cuff arthropathy of left shoulder: Plan: Postop day 1 status post left reverse total shoulder arthroplasty. PT/OT protocols. Nonweightbearing left upper extremity. DVT prophylaxis-aspirin p.o. daily, SCDs while in the hospital. Pain management as written Medical management as per [facility] service. DC planning-plan for discharge to home when medically stable. Admission and Anticipated Discharge Date Admission Date: February 24, 2021 Subjective Postop day 1 Patient sitting up in bed awake and alert. Eating his breakfast. No complaints this morning. Pain is controlled. Denies shortness of breath, chest pain, lightheadedness. States he has a little bit of residual numbness in his left thumb. Physical Exam Physical Exam: Dressings are clean, dry, and intact. Sling is in place. He has good range of motion of his fingers and wrist. Slight decreased sensation in the left thumb. He had 100 mL of drainage from his Hemovac from the previous shift. Results & Data ([facility]) Vital Signs (Past 12 Hours) Vital Signs Temp Pulse Pulse Pulse Resp BP Pulse Ox 02/25/21 07:43 36.6 C 108 H 16 124/67 92 02/25/21 04:00 36.7 C 128 H 18 128/79 93 02/25/21 01:33 84 02/25/21 01:28 72 02/25/21 00:50 36.7 C 120 H 122 H 22 106/67 94 02/24/21 23:36 121 H 104/68 02/24/21 22:45 36.4 C L 121 H 18 102/63 94 02/24/21 22:23 121 H 97/61 L Laboratory Results Laboratory Results WBC 6.45 K/uL (4.8-10.8) 02/25/21 07:59 RBC 3.04 M/uL (4.7-6.1) L 02/25/21 07:59 Hgb 9.7 g/dL (14.0-18.0) L 02/25/21 07:59 Hct 29.1 % (42-52) L 02/25/21 07:59 MCV 95.7 fL (80-100) 02/25/21 07:59 MCH 31.9 pg (25-34) 02/25/21 07:59 MCHC 33.3 g/dL (32-36) 02/25/21 07:59 RDW Std Deviation 44.7 fL (36.4-46.3) 02/25/21 07:59 RDW Coeff of Simon 12.8 % (11.5-14.5) 02/25/21 07:59 Plt Count 154 K/uL (130-400) 02/25/21 07:59 MPV 11.0 fL (7.4-10.4) H 02/25/21 07:59 Immature Gran % (Auto) 0.2 % 02/25/21 07:59 Neut % (Auto) 75.6 % 02/25/21 07:59 Lymph % (Auto) 13.3 % 02/25/21 07:59 [place] % (Auto) 10.5 % 02/25/21 07:59 Eos % (Auto) 0.2 % 02/25/21 07:59 Baso % (Auto) 0.2 % 02/25/21 07:59 Neut # (Auto) 4.88 K/uL (1.4-6.5) 02/25/21 07:59 Lymph # (Auto) 0.86 K/uL (1.2-3.4) L 02/25/21 07:59 [place] # (Auto) 0.68 K/uL (0.11-0.59) H 02/25/21 07:59 Eos # (Auto) 0.01 K/uL (0-0.5) 02/25/21 07:59 Baso # (Auto) 0.01 K/uL (0-0.2) 02/25/21 07:59 Immature Gran # (Auto) 0.01 K/uL (0.00-0.02) 02/25/21 07:59 Sodium 140 mmol/L (136-145) 02/24/21 21:49 Potassium 4.1 mmol/L (3.5-5.1) 02/24/21 21:49 Chloride 112 mmol/L (98-107) H 02/24/21 21:49 Carbon Dioxide 21 mmol/L (21-32) 02/24/21 21:49 Anion Gap 7.0 (3-11) 02/24/21 21:49 BUN 18 mg/dl (7-18) 02/24/21 21:49 Creatinine 1.31 mg/dl (0.6-1.4) 02/24/21 21:49 Est Cr Clr Drug Dosing 49.2 ml/min 02/24/21 21:49 Est GFR ( Amer) 60.0 ml/min 02/24/21 21:49 Est GFR (Non-Af Amer) 51.8 ml/min 02/24/21 21:49 BUN/Creatinine Ratio 14.0 (10-20) 02/24/21 21:49 Glucose 152 mg/dl (70-99) H 02/24/21 21:49 Calcium 8.4 mg/dl (8.5-10.1) L 02/24/21 21:49 Magnesium 1.6 mg/dl (1.8-2.4) L 02/24/21 21:49 COVID-19 Eval Order Covid19 IDNow [facility] 02/24/21 07:02 SARS-CoV-2, RNA, NAAT NEGATIVE (NEGATIVE) 02/24/21 07:02 Impressions Shoulder X-Ray 02/24/21 12:17 XR shoulder LT min 2V routine CLINICAL HISTORY: Post shoulder surgery COMPARISON STUDY: None. FINDINGS: 2 views of the left shoulder demonstrate a peripheral versus left total shoulder arthroplasty. The hardware appears intact. Alignment is anatomic. No fracture or dislocation. Skin ronald and surgical drains are in place. IMPRESSION: Status post reverse left total shoulder arthroplasty. No evidence for hardware, location. ACT 112: Negative or not required by law. Electronically signed by: Dmitry Benjamin M.D. 02/24/2021 1:20 PM
[2021-02-25 09:44] LABS: BUN Creatinine Ratio 17.6 (10-20); Calcium 8.1 mg/dl (8.5-10.1); Est GFR (African American) 89.6 ml/min; Est GFR (Non-African American) 77.3 ml/min
--- NOTE | 2021-02-25 12:34 | Hospitalist Progress Note ---
Date of Service February 25, 2021 Assessment & Plan (1) Tachycardia: Plan: With SVT vs rapid atrial flutter, rates 150s With bradycardia and sinus pause 5 seconds Recent ECHO 12/2020 with preserved EF Consult Cardio for further recommendations Holding Coreg for now given sinus pause 5 seconds as below (2) Bradycardia: Plan: with 5 second sinus pause while awake, asymptomatic hold BB for now, consult Cardio (3) Rotator cuff arthropathy of left shoulder: Plan: POD #1 - doing well up ambulating, using ICS, tolerating diet - Pain control reviewed- per primary team - Drain per primary team -dc IVFs - PT/OT per primary team - DVT: SCD's on - chemoprophylaxis per primary team -stable from Ortho standpoint for dc (4) Hypertension: Plan: BPs low normal, asymptomatic -hold Carvedilol as above -continue to hold ACEi (5) Hyperlipidemia: Plan: Continue Atorvastatin 40mg and Lopid 600mg QPm (6) CAD (coronary artery disease): Plan: h/o CABG remotely in 1998 no chest pain Continue ASA, statin, hold BB (7) PAD (peripheral artery disease): Plan: As above, continue asa, statin has ho bilt fem-pop (8) Renal artery stenosis: Plan: Follow BMP and blood pressures while in house (9) NICM (nonischemic cardiomyopathy): Plan: As above most recent ECHO preserved EF (10) DVT prophylaxis: Plan: SCDs Dispo-continued stay on tele for tachy-monse Discussed care with Ortho PA and Cardio Admission and Anticipated Discharge Date Admission Date: February 24, 2021 Subjective Pt has no complaints other than left shoulde rpain. He had SVT vs rapid atrial flutter overnight as well as 16 beats VT and then a 5 second sinus pause this AM. None of these episodes caused symptoms at all. He denies any CP or SOB, no h/o syncope or presyncope. He reports at home he was not aware to take Coreg twice a day...he takes all of his meds at nighttime and says "I drink a pot of coffee in the mornings." Review of Systems Review of Systems: All systems reviewed & are unremarkable except as noted in HPI & below Physical Exam Constitutional: WD/WN, vitals as above ENMT: external ear and nose normal, oropharynx normal Neck: trachea midline, no thyromegaly Respiratory: normal respiratory effort, lungs clear to auscultation Cardiovascular: RRR, no murmur, no edema Chest (Breasts): Chest: normal inspection of chest Gastrointestinal (Abdomen): normal bowel sounds, soft, nontender, no hepatosplenomegaly Musculoskeletal: Extremities: + extremities abnormal to inspection (LUE in sling with hemovac drain bloody drainage), no cyanosis and no clubbing Skin: no rashes, warm and dry Neurologic: moves all extremities and awake; no focal motor deficits Psychiatric: A+Ox3, euthymic affect Lymphatic: no lymphedema Results & Data Results & Data ([facility]) Vital Signs (Past 12 Hours) Vital Signs Temp Pulse Pulse Pulse Resp BP Pulse Ox 02/25/21 11:52 36.5 C 60 18 108/64 98 02/25/21 10:43 57 L 92/56 L 02/25/21 10:41 36.6 C 55 L 98/58 L 97 02/25/21 07:43 36.6 C 108 H 16 124/67 92 02/25/21 04:00 36.7 C 128 H 18 128/79 93 02/25/21 01:33 84 02/25/21 01:28 72 02/25/21 00:50 36.7 C 120 H 122 H 22 106/67 94 Laboratory Results 02/25/21 02/25/21 02/24/21 Range/Units 07:59 07:59 21:49 WBC 6.45 (4.8-10.8) K/uL RBC 3.04 L (4.7-6.1) M/uL Hgb 9.7 L (14.0-18.0) g/dL Hct 29.1 L (42-52) % MCV 95.7 (80-100) fL MCH 31.9 (25-34) pg MCHC 33.3 (32-36) g/dL RDW Std Deviation 44.7 (36.4-46.3) fL RDW Coeff of Simon 12.8 (11.5-14.5) % Plt Count 154 (130-400) K/uL MPV 11.0 H (7.4-10.4) fL Immature Gran % (Auto) 0.2 % Neut % (Auto) 75.6 % Lymph % (Auto) 13.3 % [place] % (Auto) 10.5 % Eos % (Auto) 0.2 % Baso % (Auto) 0.2 % Neut # (Auto) 4.88 (1.4-6.5) K/uL Lymph # (Auto) 0.86 L (1.2-3.4) K/uL [place] # (Auto) 0.68 H (0.11-0.59) K/uL Eos # (Auto) 0.01 (0-0.5) K/uL Baso # (Auto) 0.01 (0-0.2) K/uL Immature Gran # (Auto) 0.01 (0.00-0.02) K/uL Sodium 142 140 (136-145) mmol/L Potassium 4.0 4.1 (3.5-5.1) mmol/L Chloride 114 H 112 H (98-107) mmol/L Carbon Dioxide 23 21 (21-32) mmol/L Anion Gap 5.0 7.0 (3-11) BUN 17 18 (7-18) mg/dl Creatinine 0.94 D 1.31 (0.6-1.4) mg/dl Est Cr Clr Drug Dosing 69.0 49.2 ml/min Est GFR ( Amer) 89.6 60.0 ml/min Est GFR (Non-Af Amer) 77.3 51.8 ml/min BUN/Creatinine Ratio 17.6 14.0 (10-20) Glucose 85 152 H (70-99) mg/dl Calcium 8.1 L 8.4 L (8.5-10.1) mg/dl Magnesium 1.6 L (1.8-2.4) mg/dl 02/24/21 Range/Units 21:49 WBC 8.51 (4.8-10.8) K/uL RBC 3.32 L (4.7-6.1) M/uL Hgb 10.6 L (14.0-18.0) g/dL Hct 31.7 L (42-52) % MCV 95.5 (80-100) fL MCH 31.9 (25-34) pg MCHC 33.4 (32-36) g/dL RDW Std Deviation 44.4 (36.4-46.3) fL RDW Coeff of Simon 12.7 (11.5-14.5) % Plt Count 153 (130-400) K/uL MPV 10.7 H (7.4-10.4) fL Immature Gran % (Auto) 0.0 % Neut % (Auto) 84.2 % Lymph % (Auto) 6.3 % [place] % (Auto) 9.4 % Eos % (Auto) 0.0 % Baso % (Auto) 0.1 % Neut # (Auto) 7.16 H (1.4-6.5) K/uL Lymph # (Auto) 0.54 L (1.2-3.4) K/uL [place] # (Auto) 0.80 H (0.11-0.59) K/uL Eos # (Auto) 0.00 (0-0.5) K/uL Baso # (Auto) 0.01 (0-0.2) K/uL Immature Gran # (Auto) 0.00 (0.00-0.02) K/uL Sodium (136-145) mmol/L Potassium (3.5-5.1) mmol/L Chloride (98-107) mmol/L Carbon Dioxide (21-32) mmol/L Anion Gap (3-11) BUN (7-18) mg/dl Creatinine (0.6-1.4) mg/dl Est Cr Clr Drug Dosing ml/min Est GFR ( Amer) ml/min Est GFR (Non-Af Amer) ml/min BUN/Creatinine Ratio (10-20) Glucose (70-99) mg/dl Calcium (8.5-10.1) mg/dl Magnesium (1.8-2.4) mg/dl PG Care Time/CCT Total # of Minutes Spent Total Time Spent with Patient: Total time spent is greater than 50% in coordination of care (as documented) at patient's floor/unit and/or counseling patient: Coding Level of Care Code 39275 Subseq Hosp Care Lvl 3 Diagnoses Rotator cuff arthropathy of left shoulder M12.812 Hypertension I10 Hyperlipidemia E78.5 CAD (coronary artery disease) I25.10 PAD (peripheral artery disease) I73.9 Renal artery stenosis I70.1 NICM (nonischemic cardiomyopathy) I42.8 Tachycardia R00.0 Bradycardia R00.1 DVT prophylaxis Z29.9
--- NOTE | 2021-02-25 16:51 | Cardiology Consultation ---
Date of Consultation February 25, 2021 Assessment & Plan (1) Bradycardia: Patient did have an episode of bradycardia which occurred between 10 and 11 AM today. There was an escape rhythm and slow recovery of the sinus node. The patient could not recall any symptoms during that time. He believes he was likely sleeping when this occurred. He does not appear to have symptoms associated with bradycardia or ventricular asystole. I suspect he was sleeping at the time this happened. Provided he is ambulatory without symptoms of dizziness, lightheadedness or exercise intolerance due to bradycardia, do not believe this requires further evaluation or treatment. I do not believe this represents a contraindication to continued carvedilol use. (2) Tachycardia: The patient's tachycardia is consistent with a reentrant SVT. I do not believe this represents an atrial flutter. Generally is terminated with a single PVC. Episodes themselves are relatively brief. He did not report any symptoms associated with these episodes. He has not been aware of any palpitations or episodes of tachycardia. His episodes of transient dizziness which occurred several months ago appear to have resolved. In the absence of symptoms or more prolonged episodes, this likely does not require treatment at all. He can continue to take his carvedilol at the prescribed dose. The patient also had a few beats of a wide-complex rhythm. This was relatively irregular but could have been ventricular in nature. He has a history of coronary disease but no symptoms of coronary disease. He is known to have preserved LV systolic function. Again, this was only a few beats of a wide- complex rhythm. I do not believe this requires any additional evaluation in the absence of more symptoms. (3) CAD (coronary artery disease): No current symptoms suggestive of coronary insufficiency or angina. 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 He will continue on his outpatient medical regimen for secondary prevention. History of Present Illness Reason for Consultation: Tachycardia Requesting Physician: Aroldo Attending Physician: Preston Cantor MD History of Present Illness The patient is a 76-year-old gentleman with an extensive past medical history to include coronary artery disease status post surgical revascularization, peripheral vascular disease status post femoropopliteal and pop tibial bypasses and an abdominal aortic aneurysm who was admitted for left shoulder surgery. It seems that in the postoperative period the patient was noted to have tachycardia and placed on telemetry. Telemetry monitoring revealed 2 additional episodes of asymptomatic tachycardia as well as a few beats of a wide-complex rhythm and 1 episode of severe bradycardia. The patient was unaware of any arrhythmia. The patient states that he did not notice any specific sense of palpitation, lightheadedness, dizziness or chest discomfort. He states that he is limited by his knees. He states that this is due to neuropathy. He is able to ambulate until his knees and legs hurt. He does not appear to be limited by chest pain or dyspnea. In fact, he generally does not have the symptoms. He states that several months ago he was having very brief episodes of what he described as dizziness. However, these are quite fleeting in nature and appear to have resolved. He did not actually feel presyncopal and has never suffered syncope except after drinking too much alcohol by his report. Allergies Allergy/AdvReac Type Severity Reaction Status Date / Time No Known Allergies Allergy Verified 02/24/21 07:07 Home Medications Medication Instructions Recorded Confirmed Type aspirin 81 mg tablet,delayed 81 mg PO HS 01/26/21 02/24/21 History release atorvastatin 40 mg tablet 40 mg PO PM 01/26/21 02/24/21 History carvedilol 25 mg tablet 25 mg PO HS 01/26/21 02/24/21 History gabapentin 300 mg capsule 600 mg PO TID 01/26/21 02/24/21 History gemfibrozil 600 mg tablet (Lopid) 600 mg PO QPM 01/26/21 02/24/21 History ibuprofen 200 mg tablet (Advil) 200 - 400 mg PO Q6H PRN 01/26/21 02/24/21 History multivitamin 1 tab PO HS 01/26/21 02/24/21 History ramipril 10 mg capsule (Altace) 2.5 mg PO HS 01/26/21 02/24/21 History zolpidem 10 mg tablet 10 mg PO HS 01/26/21 02/24/21 History Patient History Medical History (Updated 02/25/21 @ 12:30 by Rosario Kendrick MD) AAA (abdominal aortic aneurysm) Infrarenal AAA, Follows with Dr. Mendez Arthritis CAD (coronary artery disease) CABG x4 (1998)- Follows with Dr. Leon/REBEKAH History of subdural hematoma 2011 Hyperlipidemia Hypertension Neuropathy B/L legs/feet PAD (peripheral artery disease) S/P femoropopliteal bypasses (patent) Renal artery stenosis Follows with Dr. Mendez Surgical History History of colonoscopy History of coronary artery bypass graft CABG x4 (1998) History of hand surgery Right joint surgery History of tonsillectomy History of vascular surgery R/L legs- femoropopliteal bypasses (1998) Family History Other No known health problems Social History Smoking Status: Former smoker Smoking End Date: Quit 14 years ago; Second Hand Exposure: Yes (PARENTS SMOKED); Do You Dip or Chew Tobacco: No; Hx Alcohol Use: Yes Alcohol type: beer Hx Substance Use: No Preferred Language: Kuwaiti Communication Ability: Effective Poiser Required: No Beliefs That Will Affect Care: None Current Living Situation: Alone current occupational status: retired Other Information That Helps Us Care for You: No Feels Safe at Home: Yes Safety Concerns: Feels Safe At This Time Assistive Devices: Glasses Review of Systems Review of Systems: All systems reviewed & are unremarkable except as noted in HPI & below Physical Exam Physical Exam: The patient is alert and oriented. Mood and affect appeared normal. He answered all questions appropriately. HEENT: Pupils are equal and reactive to light and accommodation. Extraocular movements are intact. The sclerae are anicteric. Neuro: Cranial nerves intact Neck: Patient's neck is supple. He has palpable carotid pulses bilaterally without bruits on auscultation. There is no evidence of jugular venous distention. The thyroid is not enlarged. Lungs: Clear to auscultation bilaterally. He has good air movement without use of accessory muscles. No rales wheezes or rhonchi. Cardiac: Heart demonstrates a regular rate and rhythm. Normal S1 and S2. Soft holosystolic murmur Pulses: The patient has palpable radial pulses bilaterally that are equal in intensity Extremities: There was no evidence of hypoperfusion. There is no cyanosis or clubbing. There is no edema. Left arm in a sling Skin: I did not appreciate any rashes on examination today. Results & Data ([facility]) Vital Signs (Past 12 Hours) Vital Signs Temp Pulse Pulse Resp BP Pulse Ox 02/25/21 14:59 36.6 C 70 16 130/67 96 02/25/21 11:52 36.5 C 60 18 108/64 98 02/25/21 10:43 57 L 92/56 L 02/25/21 10:41 36.6 C 55 L 98/58 L 97 02/25/21 07:43 36.6 C 108 H 16 124/67 92 Laboratory Results Abnormal Lab Results 02/24/21 02/24/21 02/25/21 21:49 21:49 07:59 WBC 8.51 6.45 RBC 3.32 L 3.04 L Hgb 10.6 L 9.7 L Hct 31.7 L 29.1 L MCV 95.5 95.7 MCH 31.9 31.9 MCHC 33.4 33.3 RDW Std Deviation 44.4 44.7 RDW Coeff of Simon 12.7 12.8 Plt Count 153 154 MPV 10.7 H 11.0 H Immature Gran % (Auto) 0.0 0.2 Neut % (Auto) 84.2 75.6 Lymph % (Auto) 6.3 13.3 [place] % (Auto) 9.4 10.5 Eos % (Auto) 0.0 0.2 Baso % (Auto) 0.1 0.2 Neut # (Auto) 7.16 H 4.88 Lymph # (Auto) 0.54 L 0.86 L [place] # (Auto) 0.80 H 0.68 H Eos # (Auto) 0.00 0.01 Baso # (Auto) 0.01 0.01 Immature Gran # (Auto) 0.00 0.01 Sodium 140 Potassium 4.1 Chloride 112 H Carbon Dioxide 21 Anion Gap 7.0 BUN 18 Creatinine 1.31 Est Cr Clr Drug Dosing 49.2 Est GFR ( Amer) 60.0 Est GFR (Non-Af Amer) 51.8 BUN/Creatinine Ratio 14.0 Glucose 152 H Calcium 8.4 L Magnesium 1.6 L 02/25/21 07:59 WBC RBC Hgb Hct MCV MCH MCHC RDW Std Deviation RDW Coeff of Simon Plt Count MPV Immature Gran % (Auto) Neut % (Auto) Lymph % (Auto) [place] % (Auto) Eos % (Auto) Baso % (Auto) Neut # (Auto) Lymph # (Auto) [place] # (Auto) Eos # (Auto) Baso # (Auto) Immature Gran # (Auto) Sodium 142 Potassium 4.0 Chloride 114 H Carbon Dioxide 23 Anion Gap 5.0 BUN 17 Creatinine 0.94 D Est Cr Clr Drug Dosing 69.0 Est GFR ( Amer) 89.6 Est GFR (Non-Af Amer) 77.3 BUN/Creatinine Ratio 17.6 Glucose 85 Calcium 8.1 L Magnesium Diagnostic Findings Echocardiogram 01/12/2021: Ejection fraction 55 to 60%, mitral annular calcification, no significant valvular heart disease. PG Care Time/CCT Total # of Minutes Spent Total Time Spent with Patient: Total time spent is greater than 50% in coordination of care (as documented) at patient's floor/unit and/or counseling patient: Coding Level of Care Code 28488 Initial Inpt Care Lvl 3 Diagnoses Bradycardia R00.1 Tachycardia R00.0 CAD (coronary artery disease) I25.10
[2021-02-25] MEDS ORDERED: oxyCODONE IR HOME PACK PO ONE (17:29)
[2021-02-25] MEDS ORDERED: oxyCODONE HCL IR 5 MG TAB (IMMEDIATE RELEASE) PO SCH (17:38)
--- NOTE | 2021-02-25 21:08 | Billing Data ---
Date of Service February 25, 2021 Coding Level of Care Code 06057 Inpt Consult Level 3
--- NOTE | 2021-03-01 11:05 | Discharge Summary ---
Date of Service March 01, 2021 Admission HPI Per Admitting Provider 76 year old male with PMHx significant for AAA, CAD s/p CABG, HTN, high cholesterol, PAD who presents with ongoing left shoulder pain. He has pain interfering with daily activities. He has failed conservative measures. He would like to proceed with surgical intervention. Patient denies headaches, sweats, fevers, chills, double vision, blurred vision, cough, sore throat, dysphagia, chest pain, sob, wheezing, n/v/d/c, numbness, tingling, fatigue, urinary symptoms, mood disorders. ROS positive for left shoulder pain and stiffness. Admission Exam Per Admitting Provider Physical Exam Constitutional: well developed and well nourished; no acute distress Eyes: PERRL, conjunctivae normal, anicteric sclerae ENMT: external ear and nose normal, oropharynx normal Neck: trachea midline, no thyromegaly Respiratory: normal respiratory effort, lungs clear to auscultation Cardiovascular: RRR, no murmur, no edema Musculoskeletal: Shoulder Exam Inspection Right Left Atrophy *PRESENT Deformities Absent Absent Posture Symmetrical Symmetrical Rhythm Normal *ABNORMAL Skin/scars Normal Normal Palpation Right Left Crepitus Absent *PRESENT Tenderness Non-tender Diffuse, anterior - posterior joint line Stability/Laxity Right Left Anterior apprehension Negative Anterior translation *POSITIVE, To the rim (2) Posterior translation Negative Nunn's Negative *POSITIVE SLAP test Negative Speed's test Negative Yergason's Negative Belly press Negative *POSITIVE Mac Negative *POSITIVE Lift off test *POSITIVE Neer's Negative *POSITIVE Strength Tests Right Left External rotation Normal Normal Shoulder shrug Normal Normal Supraspinatus Normal Normal Comments: The patient has pain with resisted strength testing. Left shoulder anterior subluxation, cogwheel [id number] crepitation with resistance. Range of Motion Right Left Active factors Normal Active description Active pain free range of motion *ACTIVE PAINFUL RANGE OF MOTION Passive factors Normal Passive description Passive pain free range of motion *PASSIVE PAINFUL RNAGE OF MOTION Ext rot 90 abduction active 90 degrees 60 degrees Ext rot 90 abduction passive 90 degrees 90 degrees Int rot 90 abduction active 90 degrees 70 degrees Int rot 90 abduction passive 80 degrees 70 degrees Ext rot 90 flexion active 90 degrees 60 degrees Ext rot 90 flexion passive 90 degrees 60 degrees Internal rotation active T4 SI Internal rotation passive T4 L3 Flexion active 180 degrees 70 degrees Flexion passive 180 degrees 150 degrees Extension active 60 degrees 40 degrees Extension passive 60 degrees 40 degrees Abduction active 180 degrees 40 degrees Abduction passive 180 degrees 70 degrees Adduction active 50 degrees 40 degrees Adduction passive 50 degrees 40 degrees Upper Extremity Strength Region Right Left Shoulder Right shoulder strength is decreased Left shoulder strength is decreased Strength - Measurement Right Left Shoulder external rotation 4+/5 Shoulder internal rotation 2+/5 3-/5 Shoulder abduction 2+/5 3-/5 Shoulder flexion 2+/5 3-/5 Skin: no rashes, warm and dry Neurologic: patellar DTR's 2+ bilat, sensation intact Psychiatric: A+Ox3, euthymic affect Principal Diagnosis Left shoulder rotator cuff arthropathy Discharge Data Allergies Allergy/AdvReac Type Severity Reaction Status Date / Time No Known Allergies Allergy Verified 02/24/21 07:07 Consultations 02/18/21 11:30 Consult Hospitalist Routine 02/25/21 11:07 Consult Cardiology Routine Procedures Performed Operation Date: 02/24/21 09:05 Actual Procedures p Left Reverse Total Shoulder Arthroplasty, Biceps Tenodesis(Left) - Preston Cantor MD Ordered Studies 02/24/21 05:00 US - OR guided needle placemen Routine Hospital Course (1) Rotator cuff arthropathy of left shoulder: .Date of Service February 25, 2021 Assessment & Plan (1) Rotator cuff arthropathy of left shoulder: Plan: Postop day 1 status post left reverse total shoulder arthroplasty. PT/OT protocols. Nonweightbearing left upper extremity. DVT prophylaxis-aspirin p.o. daily, SCDs while in the hospital. Pain management as written Medical management as per [facility] hospitalist service. DC planning-plan for discharge to home when medically stable. Admission and Anticipated Discharge Date Admission Date: February 24, 2021 Subjective Postop day 1 Patient sitting up in bed awake and alert. Eating his breakfast. No complaints this morning. Pain is controlled. Denies shortness of breath, chest pain, lightheadedness. States he has a little bit of residual numbness in his left thumb. Physical Exam Physical Exam: Dressings are clean, dry, and intact. Sling is in place. He has good range of motion of his fingers and wrist. Slight decreased sensation in the left thumb. He had 100 mL of drainage from his Hemovac from the previous shift. Results & Data ([facility]) Vital Signs (Past 12 Hours) Vital Signs Temp Pulse Pulse Pulse Resp BP Pulse Ox 02/25/21 07:43 36.6 C 108 H 16 124/67 92 02/25/21 04:00 36.7 C 128 H 18 128/79 93 02/25/21 01:33 84 02/25/21 01:28 72 02/25/21 00:50 36.7 C 120 H 122 H 22 106/67 94 02/24/21 23:36 121 H 104/68 02/24/21 22:45 36.4 C L 121 H 18 102/63 94 02/24/21 22:23 121 H 97/61 L Laboratory Results Laboratory Results WBC 6.45 K/uL (4.8-10.8) 02/25/21 07:59 RBC 3.04 M/uL (4.7-6.1) L 02/25/21 07:59 Hgb 9.7 g/dL (14.0-18.0) L 02/25/21 07:59 Hct 29.1 % (42-52) L 02/25/21 07:59 MCV 95.7 fL (80-100) 02/25/21 07:59 MCH 31.9 pg (25-34) 02/25/21 07:59 MCHC 33.3 g/dL (32-36) 02/25/21 07:59 RDW Std Deviation 44.7 fL (36.4-46.3) 02/25/21 07:59 RDW Coeff of Simon 12.8 % (11.5-14.5) 02/25/21 07:59 Plt Count 154 K/uL (130-400) 02/25/21 07:59 MPV 11.0 fL (7.4-10.4) H 02/25/21 07:59 Immature Gran % (Auto) 0.2 % 02/25/21 07:59 Neut % (Auto) 75.6 % 02/25/21 07:59 Lymph % (Auto) 13.3 % 02/25/21 07:59 [place] % (Auto) 10.5 % 02/25/21 07:59 Eos % (Auto) 0.2 % 02/25/21 07:59 Baso % (Auto) 0.2 % 02/25/21 07:59 Neut # (Auto) 4.88 K/uL (1.4-6.5) 02/25/21 07:59 Lymph # (Auto) 0.86 K/uL (1.2-3.4) L 02/25/21 07:59 [place] # (Auto) 0.68 K/uL (0.11-0.59) H 02/25/21 07:59 Eos # (Auto) 0.01 K/uL (0-0.5) 02/25/21 07:59 Baso # (Auto) 0.01 K/uL (0-0.2) 02/25/21 07:59 Immature Gran # (Auto) 0.01 K/uL (0.00-0.02) 02/25/21 07:59 Sodium 140 mmol/L (136-145) 02/24/21 21:49 Potassium 4.1 mmol/L (3.5-5.1) 02/24/21 21:49 Chloride 112 mmol/L (98-107) H 02/24/21 21:49 Carbon Dioxide 21 mmol/L (21-32) 02/24/21 21:49 Anion Gap 7.0 (3-11) 02/24/21 21:49 BUN 18 mg/dl (7-18) 02/24/21 21:49 Creatinine 1.31 mg/dl (0.6-1.4) 02/24/21 21:49 Est Cr Clr Drug Dosing 49.2 ml/min 02/24/21 21:49 Est GFR ( Amer) 60.0 ml/min 02/24/21 21:49 Est GFR (Non-Af Amer) 51.8 ml/min 02/24/21 21:49 BUN/Creatinine Ratio 14.0 (10-20) 02/24/21 21:49 Glucose 152 mg/dl (70-99) H 02/24/21 21:49 Calcium 8.4 mg/dl (8.5-10.1) L 02/24/21 21:49 Magnesium 1.6 mg/dl (1.8-2.4) L 02/24/21 21:49 COVID-19 [facility] 02/24/21 07:02 SARS-CoV-2, RNA, NAAT NEGATIVE (NEGATIVE) 02/24/21 07:02 Impressions Shoulder X-Ray 02/24/21 12:17 XR shoulder LT min 2V routine CLINICAL HISTORY: Post shoulder surgery COMPARISON STUDY: None. FINDINGS: 2 views of the left shoulder demonstrate a peripheral versus left total shoulder arthroplasty. The hardware appears intact. Alignment is anatomic. No fracture or dislocation. Skin ronald and surgical drains are in place. IMPRESSION: Status post reverse left total shoulder arthroplasty. No evidence for hardware, location. Dr Kendrick:With SVT vs rapid atrial flutter, rates 150s With bradycardia and sinus pause 5 seconds Recent ECHO 12/2020 with preserved EF ; Consult Cardio for further recommendations Holding Coreg for now given sinus pause 5 seconds as below Please see Cardiology Consult dated Feb (Dr Alcantara) Addendum (Blank) Addendum February 25, 2021 17:34 Discussed care with Cardiology and Orthopedic PA this evening. Cardiology consultation reviewed Pt is medically stable for discharge to home with new dx of AVNRT/SVT and no concerns for the bradycardia or nonsustained VT. All asymptomtic. No changes in meds except pt was reminded to take Coreg bid rather than qhs as he had been taking. Total Time Total Time Spent Total Time Spent (In Minutes): 10 Discharge Plan Discharge Items Patient Disposition: Home - Self-Care Reason For Visit: Left Shoulder Rotator Cuff Arthropathy Discharge Diagnosis: Left Shoulder Rotator Cuff Arthropathy Activity: Per Instructions section Weightbearing: Left non-weightbearing Non-emergency contact: Primary Care Provider, Surgeon and Structures Engineer Call non-emergency contact if: your pain is not controlled, your temperature is above 101.5, your wound has increased redness and your wound has increased drainage Follow-up/Referrals: Tamara Cohen D.O. [Primary Care Provider] - (Follow up within 1-2 weeks.) Diet: Heart Healthy Addtl Attending Provider Instructions: ACTIVITY RECOMMENDATIONS: SELF CARE INSTRUCTIONS AFTER TOTAL SHOULDER ARTHROPLASTY REVERSE A. You may do daily exercises as taught in physical therapy while in hospital. No lifting with the operative arm. B. You are to wear your sling/immobilizer at all times EXCEPT when performing your daily exercises and for hygiene purposes. C. You may perform dry, daily dressing changes. Please keep your incision covered. You may shower 48 hours after surgery. Do not apply soap or any ointment/lotions directly over incision. Do not soak incision in bath tub/swimming pool. D. You may use ice as needed to operative shoulder. SPECIAL CARE INSTRUCTIONS: VERY IMPORTANT TO READ AND REVIEW A. There are a few signs you need to watch for after you are home. Call [facility] at [phone] if you experience any of the followin. Increased severe shoulder pain. Some pain is expected especially when you exercise. 2. Increased swelling in you shoulder or arm; pain or swelling in either upper extremity. 3. Any fluid drainage from the incision. 4. Shortness of breath or chest pain. B. Please call [facility] at [phone] if you have any questions or concerns about your operation or recovery. C. Call your physician if: 1. Temperature is greater than 101 degrees (F). 2. Pain is not relieved by prescribed pain medications. 3. Increase drainage or redness from incision. 4. Unanswered questions or concerns. FOLLOW UP VISIT: Please call [facility] at [phone] to schedule a follow up appointment with Dr. Cantor or his PA in 12-14 days from your surgery date. Addtl Roof Bolter Helper Provider Instructions: You also had a fast heart rhythm called supraventricular tachycardia (SVT) and a brief period of a slow heart rate with a 5 second pause. Both of these were asymptomtic meaning that you did not have any sense this was happening. You should continue your same medications and ensure you are taking your carvedilol (Coreg) twice a day. Pending Studies at Discharge: No Stand-Alone Forms: My [facility], Smoking Cessation Medications and DC Order Prescriptions: New carvedilol 25 mg Tablet 25 mg PO BID Qty: 60 RF: 0 acetaminophen [Tylenol Extra Strength] 500 mg Tablet 1,000 mg PO Q8 14 Days Qty: 84 RF: 0 polyethylene glycol 3350 [Miralax] 17 gram powder in packet 17 g PO DAILY PRN (Reason: constipation) Qty: 5 RF: 0 oxycodone 5 mg Tablet 5 mg PO Q4H MDD 6 PRN (Reason: pain) Qty: 30 RF: 0 Continued multivitamin Tablet 1 tab PO HS RF: 0 atorvastatin 40 mg Tablet 40 mg PO PM RF: 0 aspirin 81 mg Tablet,Delayed Release (Dr/Ec) 81 mg PO HS RF: 0 gemfibrozil [Lopid] 600 mg Tablet 600 mg PO QPM RF: 0 zolpidem 10 mg Tablet 10 mg PO HS RF: 0 ramipril [Altace] 10 mg Capsule 2.5 mg PO HS RF: 0 gabapentin 300 mg Capsule 600 mg PO TID RF: 0 Discontinued carvedilol 25 mg Tablet 25 mg PO HS RF: 0 ibuprofen [Advil] 200 mg Tablet 200 - 400 mg PO Q6H PRN (Reason: Pain) RF: 0 Discharge Orders: Discharge Order (Routine); Ordered 02/25/21 Ordered By: Ronny Antonio Admission Data Admit Date/Time: 02/24/21 12:17 Attending Provider: Preston Cantor Admit Provider: Preston Cantor Primary Care Provider: Tamara Cohen Other Providers: Rosario Kendrick ; Wu Alcantara Other Interventions: Discharge Summary Assessment (RN) Last Done: 02/25/21 17:34
== END 2021-02-25 18:56 | disposition home or self-care (01) | DRG 483 ==
LOC: ASU 06:42 → 3N 12:17 → 2N 02-25 00:40